=== PATIENT | female | born 1995 | race Two or more races ===

== ENCOUNTER 2021-01-27 15:18 | Emergency (ER) | payer OTHER ==
[2021-01-27] MEDS ORDERED: BUFFERED LIDOCAINE 10 ML SYRINGE SUBQ STA (15:51)
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
[2021-01-27] MEDS ORDERED: BACITRACIN ZINC OINT 1 PACKET TOP STA (16:10)
[2021-01-27 16:17] VITALS: BP 131/92
== END 2021-01-27 16:19 | disposition home or self-care (01) ==
LOC: ED 15:18 → SUPCPDRO 15:18 → ED 16:19
DX: S61.412A Laceration without foreign body of left hand, initial encounter (principal); W26.0XXA Contact with knife, initial encounter; Y93.89 Activity, other specified; Y92.009 Unspecified place in unspecified non-institutional (private) residence as the place of occurrence of the external cause
CPT/HCPCS: 12001; 99282

== ENCOUNTER 2021-02-03 10:31 | Emergency (ER) | payer OTHER ==
[2021-02-03 10:44] VITALS: BP 137/98
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
== END 2021-02-03 11:07 | disposition home or self-care (01) ==
LOC: ED 10:31
DX: S61.412D Laceration without foreign body of left hand, subsequent encounter (principal); W26.0XXD Contact with knife, subsequent encounter
CPT/HCPCS: 99281; 99282